=== PATIENT | male | born 1990 | race Native Hawaiian/Other Pacific Islander ===

== ENCOUNTER 2016-12-10 16:19 | Emergency (ER) | payer MEDICAID ==
[~2016-12-10] VITALS: Ht 180.3 cm; Wt 156.8 kg
[2016-12-10 16:29] VITALS: BP 130/88; PULSE 89; RESP 10; O2SAT 99
--- NOTE | 2016-12-10 20:40 | ED.REPORT ---
HPI-Extremity Problem Upper Date of Service Dec 10, 2016 ED Provider: Twyla Dubon Nursing Notes Stated Complaint: RIGHT SHOULDER PAIN Chief Complaint: Extremity Trauma Nursing Notes Reviewed: Yes Allergies: Coded Allergies: No Known Allergies (Unverified Allergy, Unknown, 06/23/15) Scheduled PRN Methocarbamol (Methocarbamol) 750 Mg Tablet 750 MG PO QID PRN PRN For Spasm General Time Seen by MD: 19:51 Chief Complaint Shoulder injury right Right shoulder and upper back pain. Seen at [facility] yesterday and had extensive workup and diagnosed with muscle strain. 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 Hx Obtained From: Patient Arrived By: Walk-in Onset Occurred: 3 days ago Symptom Duration: Since onset Caused by: Body motion (slept on it wrong) Location: : Shoulder right Quality: Aching, Cramping Severity: Current: Moderate Severity: Maximum: Severe Associated with: Reports: Cramping, Muscle pain, Denies: Abdominal pain, Difficulty breathing, Fever, Nausea, Neck pain, Numb extremities, Swelling, Unable to move joint, Weakness Pertinent Negative: Pt denies other symptoms Exacerbated by: Range of motion, Extension Relieved by: Rest Recent Healthcare: Recent testing, Prior workup Similar Sx Previous: Yes Past Medical History Past Medical History SVTs Reports: Hypertension Past Surgical History Denies Smoking History Unknown if Ever Smoker Social History Alcohol Use: "Social" Review of Systems Basic Review of Systems Eyes: Vision NL, No discharge ENT: Hearing NL, No pain, No nasal congestion, No pharyngeal pain Respiratory: No shortness of breath, No cough, No wheeze Cardiovascular: No chest pain, No dyspnea on exertion, No orthopnea, No parox noct dyspnea, No palpitations GI: No abdominal pain, No anorexia, No nausea, No vomiting Hematologic: No bleeding, No bruising Endocrine: No cold intolerance, No heat intolerance, No weight gain, No weight loss Allergy / Immune: No allergy Psychiatric: Normal thought content Constitutional: Denies: Fatigue, Fever Musculoskeletal: Reports: Back pain, Neck pain Skin: Denies Bruising, Denies Rash Neurologic: Denies: Confusion, Headache Complete sys rev & neg: except as marked. Physical Exam Initial Vital Signs Vital Signs (First) Date Time Temp Pulse Resp B/P Pulse Ox O2 Delivery O2 Flow Rate FiO2 12/10/16 16:29 36.8 89 10 130/88 99 Room Air Initial VS: Reviewed General/Constitutional: Well-developed, Well-nourished Head / Eyes: Atraumatic, Normocephalic, PERRL ENT: Mucous membranes moist, Conjunctiva normal, No scleral icterus Neck: Full range of motion Respiratory: No respiratory distress Lymphatic: No lymphadenopathy Lower Extremities: Vascular intact, Neuro intact, No swelling, No tenderness Skin: Warm, Dry, No cyanosis Neurologic: Alert, Oriented, Nonfocal Psychiatric: Mood/affect normal, Behavior normal, Normal thought content General/Constitutional: Awake, Alert, No acute distress Neck: Atraumatic, Supple, Full range of motion Neck / Muscle Tenderness: Positive: Trapezius R... (Moderate) tenderness and spasm to palp to right rhomboid, full shoulder ROM, + CSM distally Discharge & Departure Impression: Primary Impression: Trapezius muscle spasm Additional Impression: Strain of rhomboid muscle Disposition: Home Discharge Condition All VS Reviewed: Yes Condition: Improved Patient Instructions: Cervical Neck Strain Exercises (GEN) Additional Instructions: Take your medications as prescribed. Rest for one day and then get up and start moving around with frequent gentle stretches. Ice 3 to 4 times a day to affected area for the first 24 hours then may try ice alternated with heat for pain and spasms. Follow up with your regular doctor as needed or return to Urgent Care or the ER for severe pain, numbness, tingling, or loss of control of your bladder or bowels Referrals: NOPCP (PCP) EDSupervising Provider for APC: Barry Ramsey MD, Lora L ARNP Dec 10, 2016 20:40
[2016-12-10] MEDS ORDERED: METH750T3 PO (20:43)
== END 2016-12-10 21:12 | disposition home or self-care (01) ==
LOC: SED 16:19
DX: S46.812A Strain of other muscles, fascia and tendons at shoulder and upper arm level, left arm, initial encounter (principal); M62.838 Other muscle spasm; X50.1XXA Overexertion from prolonged static or awkward postures, initial encounter; Y93.89 Activity, other specified; Y92.9 Unspecified place or not applicable; Y99.0 Civilian activity done for income or pay; I10 Essential (primary) hypertension

== ENCOUNTER 2017-05-24 01:21 | Day surgery (SDC) | payer MEDICAID ==
[2017-05-24] VITALS (16 sets, daily range): BP systolic 117–154; BP diastolic 66–90; PULSE 78–107; RESP 12–20; O2SAT 93–98
[~2017-05-24] VITALS: Ht 182.9 cm; Wt 140.4 kg
[~2017-05-24 01:21] MED LIST: ACET325T51 PO; CARV6.25 PO; LISI10TA PO; METH750T3 PO
[2017-05-24] MEDS ORDERED: Protamine Sulfate 10 mg/mL 5 mL Inj ONE ×2 (01:22→15:50)
[2017-05-24] MEDS ORDERED: Propofol 10,000 mCg/mL 20 mL Inj ONE (01:22)
[2017-05-24] MEDS ORDERED: MetoCLOpramide 5 mg/mL 2 mL Inj ONE (01:22)
[2017-05-24] MEDS ORDERED: fentaNYL-PF 50 mCg/mL 2 mL Inj ONE (01:22)
[2017-05-24] MEDS ORDERED: Lactated Ringer's 1,000 ML IV SCH ×2 (05:00→12:59)
[2017-05-24] MEDS ORDERED: Sodium Chloride LOK Flush 10 mL Syringe IVFLUSH PRN (08:30)
[2017-05-24] MEDS ORDERED: 0.9% Sodium Chloride 1,000 ML IV SCH (08:30)
[2017-05-24 11:08] LABS: Mean Corpuscular Hemoglobin 26.5 pg (27.0-35.0); Mean Corpuscular Volume 79.6 fL (81-100); NEUTROPHILS % (AUTO) 69.3 % (40-74); Platelet Count 273 bil/L (150-400)
[2017-05-24 11:09] LABS: BASOPHILS % (AUTO) 0.4 % (0-3); EOSINOPHILS % (AUTO) 2.6 % (0-5); MONOCYTES % (AUTO) 6.5 % (4-12)
[2017-05-24 11:24] LABS: INR 1.03 ratio
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
[2017-05-24] MEDS ORDERED: Insulin Human REGular-Omnicell 100 Unit/mL ONE (12:42)
[2017-05-24] MEDS ORDERED: Heparin 10,000 Unit/1,000 mL NS Premix IV ONE ×2 (12:51→13:53)
[2017-05-24] MEDS ORDERED: Lactated Ringer's 500 ML IV PRN (12:59)
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
[2017-05-24] MEDS ORDERED: HYDROmorphone 1 mg/mL Inj IVPUSH PRN (13:00)
[2017-05-24] MEDS ORDERED: MetoCLOpramide 5 mg/mL 2 mL Inj IVPUSH PRN (13:00)
[2017-05-24] MEDS ORDERED: Phenylephrine 10,000 mCg/mL Inj IVPUSH PRN (13:00)
[2017-05-24] MEDS ORDERED: EPHEDrine Sulfate 50 mg/mL Inj IVPUSH PRN (13:00)
[2017-05-24] MEDS ORDERED: Dexamethasone 4 mg/mL Inj IVPUSH PRN (13:00)
[2017-05-24] MEDS ORDERED: fentaNYL-PF 50 mCg/mL 2 mL Inj IVPUSH PRN (13:00)
[2017-05-24] MEDS ORDERED: Ondansetron 2 mg/mL 2 mL Inj IVPUSH PRN (13:00)
[2017-05-24] MEDS ORDERED: Insulin Human REGular-Omnicell 100 Unit/mL SUBQ ONE ×2 (13:05→20:05)
[2017-05-24] MEDS ORDERED: Heparin 1,000 Unit/mL 10 mL Inj ONE (13:52)
[2017-05-24] MEDS ORDERED: Heparin 1,000 Units/500 mL NS Premix IV ONE (13:52)
[2017-05-24] MEDS ORDERED: Heparin 25,000 Unit/500 mL 0.45% NS Premix IV ONE (13:53)
[2017-05-24] MEDS ORDERED: 0.9% Sodium Chloride 3,000 ML ONE (13:53)
[2017-05-24] MEDS ORDERED: 0.9% Sodium Chloride 1,000 ML ONE (13:53)
--- NOTE | 2017-05-24 18:08 | PCM.ANEP1 ---
Post Anesthesia PACU Phase 1 Assessment Date of Service: May 24, 2017 Vital Signs Vital Signs Date Time Temp Pulse Resp B/P Pulse Ox O2 Delivery O2 Flow Rate FiO2 05/24/17 17:46 85 15 129/79 05/24/17 17:44 85 15 129/79 96 Room Air 05/24/17 17:30 86 15 129/79 05/24/17 17:30 86 15 129/79 96 Room Air 05/24/17 17:15 88 12 131/67 05/24/17 17:15 88 12 131/67 96 Room Air 05/24/17 17:00 86 16 125/67 05/24/17 17:00 86 16 125/67 95 Room Air 05/24/17 16:45 93 20 121/66 05/24/17 16:45 93 20 121/66 96 Room Air 05/24/17 16:40 87 12 123/67 95 Room Air 05/24/17 11:04 83 20 152/82 05/24/17 10:49 36.8 83 20 152/82 97 Room Air Anesthetic Administered: MAC Level of Alertness: Awake, talking TYSON's with Equal Strength: Yes Pain: Yes Nausea or Vomiting: No CV Function & Hydration Stable: Yes Airway Device: Oxygen Delivery: Room Air Lungs: Normal Air Movement PACU Phase 2 Assessment Complications: No Follow up Care: N/A Patient Instructions Provided: N/A Isreal Antonio MD May 24, 2017 18:08
--- NOTE | 2017-05-24 18:49 | PROCED ---
[address] [address] PROCEDURE NOTE PATIENT: HERVE FLORES : 1990 MR#: [id number] ADMIT: 05/24/2017 JOB ID: [id number] DATE OF SERVICE: 05/24/2017 PREOPERATIVE DIAGNOSIS(ES): Paroxysmal supraventricular tachycardia. 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 PROCEDURES PERFORMED: 1. Comprehensive electrophysiology study with left atrial pacing recording. 2. Three-dimensional electroanatomical mapping using the CARTO 3 system. 3. Transseptal puncture. 4. Intracardiac echocardiography. 5. Left lateral bypass tract ablation x2. 6. Fluoroscopy. SURGEON: Risk Control Manager: Burt Damico MD PATHOLOGY LAB TECHNICIAN: Sage Vogel PA-C ANESTHESIA: Monitored anesthesia care was undertaken for this patient by the Anesthesiology service. INDICATION: This patient is a pleasant, 26-year-old man with recurrent highly symptomatic drug refractory SVT. After discussion of risks and benefits of catheter based mapping and ablation, he opted to proceed. PROCEDURAL DESCRIPTION: Following informed signed consent, the patient was taken to the EP laboratory in fasting and nonsedated state where he was prepped and draped in usual sterile fashion. The bilateral groins were infiltrated with 1% lidocaine. Then, using modified Seldinger technique, 7 and 8-Israeli sheath were inserted in the right femoral vein and two 6-Israeli sheaths were inserted in the left femoral vein. Under fluoroscopic guidance, a deflectable decapolar catheter was advanced to the coronary sinus with the most proximal bipole at the os of the sinus. A Yadiel quadripolar catheter was advanced to the RV apex and a CRD2 His catheter was advanced to the His position. A comprehensive electrophysiology study was undertaken with right atrial pacing recording, right ventricular pacing for His bundle recording, left atrial pacing via the coronary sinus catheter. The patient's clinical tachycardia was easily inducible with catheter manipulation and burst pacing from both the atrium and the ventricle. This was a regular narrow tachycardia at a cycle length of 369 msec. VA time 63 msec with earliest atrial activation and distal CS1-2. Antegrade conduction showed no antegrade jump and again the patient's clinical tachycardia was easily inducible. This was consistent with an orthodromic AV reciprocating tachycardia utilizing a concealed left-sided pathway. Ventricular conduction showed a concentric atrial activation pattern with CS1-2 being early. In tachycardia, RV apical entrainment was undertaken showing a V-A-V response with a post pacing interval tachycardia cycle length of 132 msec. We therefore prepared for transseptal puncture and left lateral bypass tract ablation. The His catheter was removed and that sheath was exchanged for a 10.5-Israeli sheath. Through this sheath, an intracardiac echocardiography probe was advanced to the RV outflow tract and used to visualize the pericardial space. No effusion was noted. The ICE probe was pulled back into the right atrium and used to visualize the interatrial septum in assistance of transseptal puncture. A transseptal puncture was performed by exchanging the 8-Israeli sheath in the groin for an SL0 sheath and dilator along with a [place] [employer] needle over a long wire. The entire system was used to engage the interatrial septum. The sheath passed across septum with ease without the need of RF. Resurvey of the pericardial space showed no evidence of effusion. The patient was heparinized for a goal ACT of 350-400 seconds for the entire time we were in the left atrium. Through this sheath, an F curve Smart Touch irrigated ablation catheter was passed into the left atrium and used to create a three-dimensional electroanatomical map of the left atrium and mitral annulus. The patient repeatedly went into his clinical tachycardia and mapping was undertaken both in tachycardia for earliest atrial electrogram as well as with retrograde pacing. Ablation lesions were placed in the lateral left atrium just distal to the CS1-2 position. During the procedure, the patient shifted into different clinical tachycardia with CS5-6 being early. Mapping was undertaken for this one as well. Ablation lesions were placed here. Ultimately the patient was no longer inducible in clinical tachycardia despite aggressive maneuvers from both the atrium and ventricle. Ventricular pacing now showed no evidence of VA conduction. This concluded our procedure. We disengaged from the left atrium, turned off the heparin, reversed patient's heparin with protamine, and resurvey of the pericardial space showed no evidence of effusion. All catheter sheaths removed, manual pressure was held for hemostasis. The patient was then transferred to the [facility] for monitoring and bedrest. COMPLICATIONS: None. ESTIMATED BLOOD LOSS: Negligible. FINDINGS: 1. Baseline rhythm is sinus with an RR interval of 680 msec, IN 153 msec, QRS 105 msec, QT interval 344 msec. 2. Retrograde conduction. VA conduction is initially eccentric with distal CS being early post ablation. He has no VA conduction. 3. Antegrade conduction. AV lorie ERP is 200 msec at [address] AERP is less than this value. No antegrade jumps were seen. 4. Dual left lateral bypass tract, status post ablation without inducibility post ablation. IMPRESSION: Successful left lateral bypass tract ablation for orthodromic AV reciprocating tachycardia. PLAN: 1. Bedrest x4 hours. 2. Monitoring overnight. 3. Anticoagulation with Xarelto 20 mg daily for one month. 4. Follow up with Sage Vogel in clinic in four weeks. ATTENDING STATEMENT: Burt Damico M.D., electrophysiology attending was present for and supervised/performed all aspects of this procedure.
--- NOTE | 2017-05-24 19:44 | NUR ---
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 Family at bedside. Patient reports pain of 3/10 as tolerable. Bilateral groin venous puncture without bleeding or hematoma. Pedal pulses present. Taking PO and void pr urinal. Transferred to room 2007 by bed at 1945. Report to receiving RN.
[2017-05-25 03:27] VITALS: BP 135/82; PULSE 98; RESP 18; O2SAT 97
[2017-05-25 05:36] VITALS: PULSE 88
--- NOTE | 2017-05-25 06:07 | NUR ---
Transfer from [facility] Received report from GITA Osborne. S/P ablation and recovery in [facility]. Came to floor via bed. Post procedure medications given prior to arrival to floor. A/O x3, TYSON, groin sites c/d/i. Remained on bedrest until 2134, up to ambulate. Venous sites on groin remained c/d/I, denied pain with exception of sensitivity to right groin site. Pt presented with a new onset of elevated blood sugar (in 300s) and 273 on arrival. Per report received, further treatment will be deferred for outpatient follow-up and evaluation. MD ordered for Insulin, 5 units given in [facility]. Pt. denies pain, SOB, up to BR independently, voiding without difficulty, VSS. Tele: SR in 80's.
[2017-05-25 08:00] VITALS: PULSE 84
[2017-05-25 08:25] VITALS: BP 148/95; PULSE 90; RESP 16; O2SAT 95
--- NOTE | 2017-05-25 08:25 | PCM.DIMED ---
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 To prevent infection, do not lift, push or pull more than 10 lbs for 1 week. ) Call your provider Call your provider for: Fever or Chills, Bleeding, Excessive diarrhea, Weakness (unilateral) Patient Instructions Mid-level Provider (F9): Sage Vogel PA-C Follow-up with Mid-level in: 6 weeks (Appt. on Jul 13 at 09:15 (arrival time) at [facility] Cardiology.) Sage Vogel PA-C May 25, 2017 08:25
[2017-05-25] MEDS ORDERED: Omega-3 Fatty Acids 1,000 mg Capsule PO SCH (08:30)
[2017-05-25] MEDS ORDERED: RIVA10TA PO (08:35)
[2017-05-25] MEDS ORDERED: FISH1CAP15 PO (08:35)
--- NOTE | 2017-05-25 09:29 | DIS ---
[address] [address] DISCHARGE SUMMARY PATIENT: SHASHANK JOHNS : 1990 MR#: [id number] ADMIT: 05/24/2017 JOB ID: [id number] DIS: ADMISSION DATE: 05/24/2017 DISCHARGE DATE: 05/25/2017 REASON FOR ADMISSION: EP study and possible arrhythmia ablation. CHIEF COMPLAINT: Recurrent rapid palpitations leading to chest discomfort and lightheadedness. BRIEF HISTORY: Shashank Johns is a pleasant 26-year-old man with a low normal left ventricular systolic function and an ejection fraction of 50-55% and he also has systemic hypertension. He was referred to Dr. Burt Damico for recurrent drug refractory tachycardia. He has a history of recurrent tachycardias for the past eight years with each episode lasting about 10 minutes or so. He has not required adenosine infusion, but has made several trips to the ER where a short RP supraventricular tachycardia at rates greater than 200. BPM was recorded. His baseline ECG does not show a ventricular pre-excitation. He was offered a diagnostic EP study and ablation for long-term resolution and wished to proceed. COURSE IN HOSPITAL: The patient was admitted through the [facility] and taken to the laborer [facility] where sedation and anesthesia were provided by anesthesiologist. The EP study was undertaken and it became evident that he had a left-sided accessory pathway which functioned in the retrograde direction only. Atrioventricular reentrant tachycardia was easily induced and almost incessant. The ablation procedure by way of atrial transseptal puncture was undertaken and successfully performed without incident. Afterward the sheaths were removed and hemostasis was obtained. He was awakened from anesthesia and transferred back to the [facility] for further recovery. He was later transferred up to the [facility] for overnight care, and he did well there. He was ambulatory without difficulty and had no bleeding from either right or left femoral access site. He in the morning denied any chest pain or significant discomfort and felt well for discharge home. He had not had recurrence of tachycardia and the telemetry monitoring did not record any tachycardia, other than sinus tachycardia. DISPOSITION: The patient was discharged home in good condition with a followup appointment at the [facility] Cardiology office in one month. He was asked to not lift, push, or pull more than 10 pounds to prevent bleeding and to not sit in a bathtub, hot tub, or pool for one week to prevent infection. He was also advised to establish with a primary care physician for management of hyperglycemia which was incidentally discovered during this hospitalization. He will need to be instructed on a heart healthy and diabetic diets. DISCHARGE MEDICATIONS: 1. Fish oil 1200 mg capsule daily. 2. Rivaroxaban 20 mg daily for 1 month only. 3. Acetaminophen 325 mg p.r.n. pain. 4. Carvedilol 6.25 mg b.i.d. 5. Lisinopril 10 mg daily. FINAL DIAGNOSES: 1. 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 2. Hypertension. 3. Hyperglycemia.
--- NOTE | 2017-05-25 10:14 | NUR ---
Discharge Patient ambulated off unit with [employer] and family in a stable condition. Both IV's DC'd intact, tele removed, all personal belongings with patient. New medication of [place] 3 and Xarelto discussed -- Xarelto electronically sent, called patient's pharmacy and verified it was ready for fruit or nut picker. Next due dose of Xarelto tonight at 1700 discussed, patient and family verbalized understanding. All other medications continued per home scheduled and discussed. Patient acknowledges that he may bruise/bleed easier, and to monitor for this as well as BM/urine color while on blood thinner. Follow up with cardiology scheduled for 07/13/17-- no questions at time of discharge.
== END 2017-05-25 10:10 | disposition home or self-care (01) ==
LOC: SOUO 01:21 → PCC 19:20 → SOUO 05-25 10:10
PROVIDERS: ATTEND Internal Medicine Cardiovascular Disease
DX: I47.1 Supraventricular tachycardia (principal); E66.9 Obesity, unspecified; Z68.41 Body mass index [BMI] 40.0-44.9, adult; I10 Essential (primary) hypertension
CPT/HCPCS: 36415; 80048; 85025; 85610; 93005; 93462; 93613; 93621; 93653; 93662; C1730; C1732; C1759; C1893; J1644; J1815; J2250; J2720; J2765; J3010; J7030; J7040